=== PATIENT | female | born 1965 | race Caucasian/White ===

== ENCOUNTER → 2018-02-06 | Outpatient (CLI) | payer OTHER | LOC: LAB 10:00 → LAB SHORT 10:00 | PROVIDERS: Nurse Practitioner Family | DX: Z01.419 Encounter for gynecological examination (general) (routine) without abnormal findings (principal) | CPT/HCPCS: G0145 ==

== ENCOUNTER → 2018-10-28 | Outpatient (CLI) | payer OTHER | LOC: LAB SHORT 13:13 → LAB EV 13:13 | DX: E03.9 Hypothyroidism, unspecified (principal) | CPT/HCPCS: 36415; 84443 ==

== ENCOUNTER 2019-02-06 20:33 | Emergency (ER) | payer OTHER ==
[~2019-02-06] VITALS: Ht 162.6 cm; Wt 84.4 kg
[2019-02-06] MEDS ORDERED: LEVSOD100 (20:57)
== END 2019-02-06 22:05 | disposition home or self-care (01) ==
LOC: ER 20:33
DX: S93.602A Unspecified sprain of left foot, initial encounter (principal); X50.9XXA Other and unspecified overexertion or strenuous movements or postures, initial encounter; Z88.0 Allergy status to penicillin; Z88.2 Allergy status to sulfonamides; Z88.1 Allergy status to other antibiotic agents; Z79.899 Other long term (current) drug therapy
CPT/HCPCS: 73630; 99283-25

== ENCOUNTER 2019-09-26 13:48 | Day surgery (SDC) | payer OTHER ==
[~2019-09-26] VITALS: Ht 162.6 cm; Wt 85.0 kg
[~2019-09-26 13:48] MED LIST: LEVSOD100 PO
--- NOTE | 2019-09-26 15:26 | NUR ---
History, Chart, Medications and Allergies reviewed before start of procedure. Lungs clear T/O to Auscultation. Patient confirms NPO status and agrees with scheduled surgery. Pre-Op teaching done. Pt verbalizes understanding. Patient reports completing Chlorhexadine shower X2 prior to admission to hospital. Patient States Post-Procedure ride home has been arranged.
--- NOTE | 2019-09-27 00:16 | NUR ---
THIS NURSE RESPONDED TO [facility] WHERE ANOTHER NURSE AND A ASSISTANT ASSOCIATE FULL PROFESSOR WERE ASSISTING HER BACK INTO BED FROM THE BEDSIDE COMMODE. BONNIE EXPERIENCED A SYNCOPAL EPISODE LASTING APPROXIMATELY 10 SECONDS. BONNIE STATES THAT SHE HAS HAD THESE EPISODES IN THE PAST WHEN SHE HAS BEEN SICK WITH THE FLU. SHE STATED THAT SHE WAS FEELING NAUSEATED PRIOR TO THE EPISODE BUT DENIES ANY OTHER SYMPTOMS. SHE DID STATE THAT SHE WAS PUSHING "A LITTLE BIT" TO EMPTY HER BLADDER. VSS. SHE IS TOLERATING PO INTAKE WELL.
--- NOTE | 2019-09-27 06:17 | NUR ---
SHIFT SUMMARY: BONNIE IS POD1 FOR AN ORIF OF THE RIGHT TIBIAL PLATEAU FRACTURE. SHE IS A&O X4. SENSATION INTACT, SHE DOES COMPLAIN OF OCCASIONAL MUSCLE SPASMS. SHE STATES THAT SHE TAKES AN OTC HERBAL MUSCLE RELAXANT AT HOME BUT DOES NOT KNOW THE NAME. SHE STATES THAT ICE HAS BEEN HELPFUL IN MITIGATING HER PAIN. AQUACELL TO LATERAL ASPECT OF RIGHT KNEE C/D&I. SHE DECLINED TO GET UP TO THE RECLINER AFTER VOIDING IN THE BEDSIDE COMMODE. SHE HAS NOT HAD ANY REPEAT SYNCOPAL EPISODES. SHE DID STATE SHE HAD SOME MILD DIZZINESS. ORTHOSTATIC BP STABLE. O2 SATS MAINTAINING ON 1 L VIA NC. SHE IS ABLE TO MAKE HER NEEDS KNOWN. SHE STATES THAT SHE DOESN'T FEEL ABLE TO GO HOME TODAY. HER DAUGHTER HAS INVITED HER TO COME AND STAY AT HER HOME DURING HER RECOVERY. VSS. SHE IS LYING IN BED WITH HER CALL LIGHT IN REACH.
--- NOTE | 2019-09-27 12:32 | NUR ---
09/27/19 1232 Jeaneth Tyler VERIFICATIONS: EDIT CHART.
[2019-09-27] MEDS ORDERED: Percocet 5-3251 EACH PO (13:53)
[2019-09-27] MEDS ORDERED: Aspir 8181 MG PO (13:54)
--- NOTE | 2019-09-27 17:08 | NUR ---
DISCHARGE SUMMARY PT A&OX4, VSS, LEFT FLOOR VIA WC WITH PERSONAL POSSESSIONS TO GO HOME WITH DAUGHTER, INCLUDING DISCHARGE PACKET AND 1 NARC SCRIPT, 1 ASA SCRIPT, 1 WHEELCHAIR SCRIPT. DC INSTRUCTIONS PROVIDED. PT REP UNDERSTANDING THOSE INSTRUCTIONS INCLUDING CHANGE AQUACEL IN 1 WK (TUESDAY), FU WITH SURGEON IN 2 WKS, NO DRIVING WHILE TAKING NARCOTICS, OKAY TO SHOWER, NO TUB/JACUZZI. IV DC'D.
== END 2019-09-27 17:02 | disposition home or self-care (01) ==
LOC: ORSCMMR 13:48 → ORD 15:30 → SURS 19:48 → ORSCMMR 09-27 17:02
PROC: 0QSG04Z Reposition Right Tibia with Internal Fixation Device, Open Approach (ICD-10-PCS; principal; 2019-09-27)
DX: S82.141A Displaced bicondylar fracture of right tibia, initial encounter for closed fracture (principal)
CPT/HCPCS: 73560-RT; 97110; 97116; 97162; C1713; J0690; J1100; J2250; J2310; J2405; J2704; J2710; J3010; J7120

== ENCOUNTER → 2021-02-03 | Outpatient (CLI) | payer OTHER ==
[~2021-02-03] MED LIST changes: +Aspir 8181 MG PO; +Percocet 5-3251 EACH PO
== END ==
LOC: LAB 11:24 → LAB SHORT 11:24
PROVIDERS: Nurse Practitioner Family
DX: Z01.419 Encounter for gynecological examination (general) (routine) without abnormal findings (principal)
CPT/HCPCS: G0145

== ENCOUNTER → 2023-02-24 | Outpatient (CLI) | payer OTHER ==
[2023-02-28 14:09] LABS: CHLAMYDIA TRACHOMATIS, NAA Negative (Negative); HPV 16 Negative (Negative); HPV 18 Negative (Negative); HPV OTHER HR TYPES Negative (Negative)
== END ==
LOC: LAB SHORT 17:04 → LAB 17:04
PROVIDERS: Nurse Practitioner Family
DX: Z12.4 Encounter for screening for malignant neoplasm of cervix (principal)
CPT/HCPCS: 87491; 87591; 87624; G0145